=== PATIENT | female | born 1990 | race African-American/Black ===

== ENCOUNTER 2019-11-04 12:28 | Emergency (ER) | payer OTHER ==
[~2019-11-04] VITALS: Ht 160 cm; Wt 60.8 kg
[~2019-11-04 12:28] MED LIST: BACTRIM DS TAB1 EACH PO; COMPAZINE5 MG PO; IBUPROFEN 600600 M1 PO; NOHOMEMEDICATIONS
[2019-11-04 13:46] LABS: URINE BILIRUBIN NEGATIVE (Negative); URINE BLOOD 3+ (Negative); URINE CLARITY CLEAR; URINE COLOR YELLOW; URINE GLUCOSE-RANDOM* NEGATIVE (Negative); URINE KETONES NEGATIVE (Negative); URINE LEUKOCYTES-REFLEX TRACE (Negative); URINE NITRITE-REFLEX NEGATIVE (Negative); URINE PROTEIN (DIPSTICK) NEGATIVE (Negative); URINE SPECIFIC GRAVITY 1.025 (1.005-1.035)
[2019-11-04 14:00] LABS: MUCUS 0-3 Light strn/LPF (None Seen); SQUAMOUS 0-3 Few /LPF (0-3)
[2019-11-04 14:02] LABS: URINE RBC 3-10 Few /HPF (0-2)
[2019-11-04 14:03] LABS: BACTERIA-REFLEX 1-9 Few /HPF (None Seen); CASTS None Seen /LPF (None Seen); CRYSTALS None Seen /LPF (None Seen); URINE WBC-REFLEX 0-5 Rare /HPF (0-5)
[2019-11-04] MEDS ORDERED: IBUPROFEN 800800 M1 PO (14:51)
[2019-11-04 15:04] VITALS: BP 108/73
== END 2019-11-04 15:05 | disposition home or self-care (01) ==
LOC: ER 12:28
PROVIDERS: Physician Assistant
DX: N93.8 Other specified abnormal uterine and vaginal bleeding (principal); R10.30 Lower abdominal pain, unspecified; G43.909 Migraine, unspecified, not intractable, without status migrainosus; Z79.899 Other long term (current) drug therapy